=== PATIENT | male | born 1965 | race Caucasian/White ===

== ENCOUNTER 2017-06-11 05:49 | Observation (INO) | payer BC ==
[~2017-06-11] VITALS: Ht 180.3 cm; Wt 82.7 kg
[2017-06-11 05:54] VITALS: BP 139/69; PULSE 88; RESP 18; TEMP 98.5; O2SAT 96
--- NOTE | 2017-06-11 06:49 | PD ---
HPI Chief Complaint: GI Complaint Time Seen by Provider: 06:44 Travel History International Travel<30 days: No Contact w/Intl Traveler<30days: No Traveled to known affect area: No History of Present Illness HPI 51-year-old male presents to the emergency department by private transportation for complaint of increasingly worsening right lower quadrant abdominal pain associated with nausea subjective fever chills poor appetite and sensation of bloating or needing to have a bowel movement since approximately 8 PM last evening. Patient states pain developed as a bloating sensation in the periumbilical and midline area and overnight has progressively worsened and localized now to the right lower quadrant. No prior history of abdominal pain GI issues or abdominal surgery. Patient does not report any flank pain dysuria frequency urgency or hematuria. No report of any referred pain to the groin or testicle. Patient denies any chest pain pleuritic chest pain or shortness of breath. Patient denies any chronic medical conditions takes no medications on a regular basis and takes no prescription medications. Patient denies any medication allergies. Patient is unable to identify alleviating factors but is aware that walking or any deep breathing or impact causes increased right lower quadrant abdominal pain. Patient estimates his pain 8/10 in intensity is associated with nausea. PFSH Past Medical History Narrative Medical Negative past medical history; negative surgical history; no tobacco or alcohol use; nursing notes ?: Not Social History Alcohol Use: No Tobacco Use: No Substance Use: No Allergies-Medications (Allergen,Severity, Reaction): Coded Allergies: No Known Allergies (Unverified , 06/11/17) Reported Meds & Prescriptions Reported Meds & Active Scripts Active No Active Prescriptions or Reported Medications Review of Systems Except as stated in HPI: all other systems reviewed are Neg General / Constitutional: Positive: Fever (Subjective) HENT: No: Congestion Cardiovascular: No: Chest Pain or Discomfort, Diaphoresis, Dyspnea on exertion Respiratory: No: Shortness of Breath, Orthopnea, Hemoptysis, Pleuritic Pain Gastrointestinal: Positive: Nausea, Abdominal Pain (Right lower quadrant), No: Vomiting, Diarrhea Genitourinary: No: Dysuria, Hematuria, Flank Pain Musculoskeletal: No: Myalgias, Arthralgias, Cramping, Edema, Pain Skin: No Rash Neurologic: No: Weakness Psychiatric: No: Anxiety Hematologic/Lymphatic: No: Lymph Node Enlargement Physical Exam Narrative GENERAL: Well-developed well-nourished male in no acute distress or respiratory distress obvious discomfort with movement. SKIN: Warm and dry. HEAD: Normocephalic. EYES: No scleral icterus. No injection or drainage. NECK: Supple, trachea midline. No JVD or lymphadenopathy. CARDIOVASCULAR: Regular rate and rhythm without murmurs, gallops, or rubs. RESPIRATORY: Breath sounds equal bilaterally. No accessory muscle use. GASTROINTESTINAL: Abdomen soft, localized right lower quadrant tenderness with guarding and rebound, nondistended. MUSCULOSKELETAL: No cyanosis, or edema. BACK: Nontender without obvious deformity. No CVA tenderness. Data Data Last Documented VS Vital Signs Date Time Temp Pulse Resp B/P (MAP) Pulse Ox O2 Delivery O2 Flow Rate FiO2 06/11/17 07:10 98.4 82 16 142/83 (102) 96 Room Air Orders Orders Complete Blood Count With Diff (06/11/17 06:29) Comprehensive Metabolic Panel (06/11/17 06:29) Lipase (06/11/17 06:29) Urinalysis - C+S If Indicated (06/11/17 06:29) Ct Abd/Pel W Iv Contrast(Rout) (06/11/17 ) NPO (06/11/17 06:49) Ondansetron Inj (Zofran Inj) (06/11/17 07:00) Morphine Inj (Morphine Inj) (06/11/17 07:00) Sodium Chlor 0.9% 1000 Ml Inj (Ns 1000 M (06/11/17 07:00) Sodium Chlor 0.9% 1000 Ml Inj (Ns 1000 M (06/11/17 07:00) Iohexol 350 Inj (Omnipaque 350 Inj) (06/11/17 07:32) Piperacil-Tazo 4.5 Gm Premix (Zosyn 4.5 (06/11/17 08:00) Admit Order (Ed Use Only) (06/11/17 ) Vital Signs (Adult) Q4H (06/11/17 08:00) Diet Npo (06/11/17 Breakfast) Activity Bed Rest (06/11/17 08:00) Notify Dr: Other (06/11/17 08:00) Labs Laboratory Tests Test 06/11/17 06:30 White Blood Count 12.8 TH/MM3 Red Blood Count 5.55 MIL/MM3 Hemoglobin 15.8 GM/DL Hematocrit 44.8 % Mean Corpuscular Volume 80.7 FL Mean Corpuscular Hemoglobin 28.5 PG Mean Corpuscular Hemoglobin Concent 35.4 % Red Cell Distribution Width 13.1 % Platelet Count 209 TH/MM3 Mean Platelet Volume 8.3 FL Neutrophils (%) (Auto) 84.1 % Lymphocytes (%) (Auto) 10.5 % Monocytes (%) (Auto) 4.6 % Eosinophils (%) (Auto) 0.6 % Basophils (%) (Auto) 0.2 % Neutrophils # (Auto) 10.8 TH/MM3 Lymphocytes # (Auto) 1.3 TH/MM3 Monocytes # (Auto) 0.6 TH/MM3 Eosinophils # (Auto) 0.1 TH/MM3 Basophils # (Auto) 0.0 TH/MM3 CBC Comment DIFF FINAL Differential Comment Blood Urea Nitrogen 14 MG/DL Creatinine 1.00 MG/DL Random Glucose 97 MG/DL Total Protein 7.9 GM/DL Albumin 3.7 GM/DL Calcium Level 8.3 MG/DL Alkaline Phosphatase 51 U/L Aspartate Amino Transf (AST/SGOT) 43 U/L Alanine Aminotransferase (ALT/SGPT) 19 U/L Total Bilirubin 0.9 MG/DL Sodium Level 140 MEQ/L Potassium Level 3.5 MEQ/L Chloride Level 108 MEQ/L Carbon Dioxide Level 23.0 MEQ/L Anion Gap 9 MEQ/L Estimat Glomerular Filtration Rate 78 ML/MIN Lipase 307 U/L MDM Medical Decision Making Medical Screen Exam Complete: Yes Emergency Medical Condition: Yes Medical Record Reviewed: Yes Interpretation(s) abd/pel: CONCLUSION: 1. Findings consistent with acute appendicitis. No abscess or evidence for perforation at this time. 2. 3.4 cm hypodense lesion in segment 7 of the liver with indeterminate density. There are multiple additional subcentimeter hypodense lesions in the right lobe of the liver which are too small fully characterize. Statistically, this reflects a complex cyst or atypical hemangioma. This may be further evaluated with MRI liver mass protocol as clinically warranted. 3. Additional ancillary findings, as above. Lane Diaz MD on June 11, 2017 at 7:37 Board Certified Radiologist. This report was verified electronically. CBC & BMP Diagram 06/11/17 06:30 Total Protein 7.9, Albumin 3.7, Calcium Level 8.3 L, Alkaline Phosphatase 51, Aspartate Amino Transf (AST/SGOT) 43 H, Alanine Aminotransferase (ALT/SGPT) 19, Total Bilirubin 0.9 Vital Signs Date Time Temp Pulse Resp B/P (MAP) Pulse Ox O2 Delivery O2 Flow Rate FiO2 06/11/17 07:10 98.4 82 16 142/83 (102) 96 Room Air 06/11/17 05:54 98.5 88 18 139/69 (92) 96 Differential Diagnosis Abdominal pain, appendicitis, diverticulitis, renal colic, unlikely testicular torsion Narrative Course IV access obtained specimens collected and sent for resulting CT abdomen and pelvis ordered patient administered normal saline at 125 cc/h kept n.p.o. morphine 4 mg IV administered along with Zofran 4 mg IV Physician Communication Physician Communication call placed to Gen Surgery --discussed with Dr Oropeza @ 0800 Diagnosis Primary Impression: Acute appendicitis Qualified Codes: K35.3 - Acute appendicitis with localized peritonitis Admitting Information Admitting Physician Requests: Admit Scripts No Active Prescriptions or Reported Meds Vita Villagomez MD Jun 11, 2017 06:49
[2017-06-11 06:50] LABS: AUTOMATED NEUTROPHIL # 10.8 TH/MM3 (1.8-7.7); BASOPHIL % 0.2 % (0.0-2.0); EOSINOPHIL # 0.1 TH/MM3 (0-0.4); EOSINOPHIL % 0.6 % (0.0-4.0); HEMATOCRIT 44.8 % (39.0-51.0); HEMOGLOBIN 15.8 GM/DL (13.0-17.0); LYMPH % 10.5 % (9.0-44.0); LYMPHOCYTE # 1.3 TH/MM3 (1.0-4.8); MEAN CELL VOLUME 80.7 FL (80.0-100.0); MEAN CORPUSCULAR HEMOGLOBIN 28.5 PG (27.0-34.0); MEAN CORPUSCULAR HGB CONC 35.4 % (32.0-36.0); MEAN PLATELET VOLUME 8.3 FL (7.0-11.0); MONO % 4.6 % (0.0-8.0); MONOCYTE # 0.6 TH/MM3 (0-0.9); NEUT % 84.1 % (16.0-70.0); PLATELET COUNT 209 TH/MM3 (150-450); RED BLOOD COUNT 5.55 MIL/MM3 (4.50-5.90); RED CELL DISTRIBUTION WIDTH 13.1 % (11.6-17.2); WHITE BLOOD COUNT 12.8 TH/MM3 (4.0-11.0)
[2017-06-11] MEDS ORDERED: ONDANSETRON HCL 4 MG/2 ML VIAL IV PUSH ONE (07:00)
[2017-06-11] MEDS ORDERED: SODIUM CHLOR 0.9% 1000 ML INJ 1,000 ML IV ONE (07:00)
[2017-06-11] MEDS ORDERED: MORPHINE SULFATE 4 MG/ML INJ IV PUSH ONE (07:00)
[2017-06-11 07:08] LABS: CHLORIDE 108 MEQ/L (98-107); SODIUM (NA) 140 MEQ/L (136-145)
[2017-06-11 07:10] VITALS: BP 142/83; PULSE 82; RESP 16; TEMP 98.4; O2SAT 96
[2017-06-11 07:12] LABS: ALBUMIN 3.7 GM/DL (3.4-5.0); BLOOD UREA NITROGEN 14 MG/DL (7-18); CALCIUM 8.3 MG/DL (8.5-10.1); GLUCOSE,RANDOM 97 MG/DL (74-106)
[2017-06-11 07:15] LABS: ALT (GPT) 19 U/L (12-78); AST (GOT) 43 U/L (15-37); GLOMERULAR FILTRATION RATE 78 ML/MIN (>89)
[2017-06-11 07:17] LABS: TOTAL BILIRUBIN ADULT 0.9 MG/DL (0.2-1.0); TOTAL PROTEIN 7.9 GM/DL (6.4-8.2)
[2017-06-11 07:18] LABS: ALKALINE PHOSPHATASE 51 U/L (45-117)
[2017-06-11] MEDS ORDERED: IOHEXOL 350 MG/ML 10 ML VIAL (for RAD DIAG) IVCONTRAST ONE (07:32)
--- NOTE | 2017-06-11 07:50 | RADRPT ---
EXAM DATE/TIME: 06/11/2017 07:27 [facility] COMPARISON: No previous studies available for comparison. INDICATIONS : Right lower quadrant pain. IV CONTRAST: 95 cc Omnipaque 350 (iohexol) IV ORAL CONTRAST: No oral contrast ingested. RADIATION DOSE: 10.15 CTDIvol (mGy) MEDICAL HISTORY : None SURGICAL HISTORY : None. ENCOUNTER: Initial ACUITY: 1 day PAIN SCALE: 8/10 LOCATION: Right lower quadrant TECHNIQUE: Volumetric scanning of the abdomen and pelvis was performed. Using automated exposure control and ad justment of the mA and/or kV according to patient size, radiation dose was kept as low as reasonably achievable to obtain optimal diagnostic quality images. DICOM format image data is available electro nically for review and comparison. FINDINGS: LOWER LUNGS: Minimal groundglass opacities at the lung bases. LIVER: There is a 3.4 x 2.5 cm hypodense lesion in segment 7 which demonstrates indeterminate density. Multi ple additional subcentimeter hypodense lesions scattered primarily in the right lobe are too small to fully characterize. No calcified gallstones. SPLEEN: Normal size without lesion. PANCREAS: Within normal limits. KIDNEYS: Kidneys demonstrate symmetrical enhancement without evidence for hydronephrosis or radiopaque renal c alculi. There is a subcentimeter hypodense lesion in the superior pole the left kidney which is to sm all to fully characterize. ADRENAL GLANDS: Within normal limits. VASCULAR: There is no aortic aneurysm. BOWEL/MESENTERY: The appendix is slightly enlarged with mild periappendiceal inflammatory stranding. No focal drainabl e fluid collections or free air. Otherwise appears unremarkable. ABDOMINAL WALL: Within normal limits. RETROPERITONEUM: There is no lymphadenopathy. BLADDER: No wall thickening or mass. REPRODUCTIVE: Nonspecific enlargement of the prostate gland. INGUINAL: Small fat containing left inguinal hernia. MUSCULOSKELETAL: Probable healed left-sided rib fractures. Mild dextroscoliosis of the lumbar spine. No abnormal lytic or blastic bony lesions. CONCLUSION: 1. Findings consistent with acute appendicitis. No abscess or evidence for perforation at this time. 2. 3.4 cm hypodense lesion in segment 7 of the liver with indeterminate density. There are multiple a dditional subcentimeter hypodense lesions in the right lobe of the liver which are too small fully ch aracterize. Statistically, this reflects a complex cyst or atypical hemangioma. This may be further e valuated with MRI liver mass protocol as clinically warranted. 3. Additional ancillary findings, as above. Lane Diaz MD on June 11, 2017 at 7:37 Board Certified Radiologist. This report was verified electronically.
[2017-06-11] MEDS ORDERED: PIPERACIL-TAZO 4.5 GM PREMIX 100 ML IV ONE (08:00)
[2017-06-11] MEDS: SODIUM CHLOR 0.9% 1000 ML INJ 1,000 ML IV SCH ×4 (08:28→16:28)
[2017-06-11] MEDS ORDERED: SODIUM CHLORIDE 0.9% FLUSH 10 ML FLUSH IV FLUSH PRN (08:30)
--- NOTE | 2017-06-11 08:34 | HHI.HP ---
cc: Yuri Oropeza MD [facility] Service ADMISSION NOTE FOR SURGICAL ATTENDING, DR. YURI OROPEZA General Surgery Primary Care Physician No Primary Care Physician Admission Diagnosis acute appendicitis Chief Complaint: Abdominal pain History of Present Illness This is a 51 year old male with no past medical history who presents to the ED with complaints of RIGHT lower quadrant abdominal pain. Of note, the patient just traveled back from a hiking trip in [place]. On Saturday, the patient was traveling back to [place] and generalized felt tired but contributed that to his hiking trip. When he went to bed last night he felt slightly feverish. He did not take his temperature. The pain was severe and he decided to come to the ED. A CT abdomen/pelvis was obtained which in consistent with acute appendicitis. He does have an elevated WBC count of 12.0. All of his other labs are unremarkable. The patient was started on Zosyn in the ED. A General Surgery admission has been requested. Review of Systems Constitutional: COMPLAINS OF: Fatigue, Chills, Change in appetite Endocrine: DENIES: Polydipsia, Polyuria, Polyphagia Eyes: DENIES: Diplopia, Eye inflammation Ears, nose, mouth, throat: DENIES: Hearing loss, Vertigo Respiratory: DENIES: Apneas, Cough Cardiovascular: DENIES: Chest pain Gastrointestinal: COMPLAINS OF: Abdominal pain, Nausea, DENIES: Vomiting Genitourinary: DENIES: Urinary frequency, Urinary incontinence Musculoskeletal: DENIES: Joint pain Integumentary: DENIES: Abnormal pigmentation Hematologic/lymphatic: DENIES: Bruising Immunologic/allergic: DENIES: Eczema Neurologic: DENIES: Abnormal gait, Headache Psychiatric: DENIES: Confusion, Mood changes, Depression Past Family Social History Past Medical History None Past Surgical History Vasectomy Lasik eye surgery Reported Medications None Allergies: Coded Allergies: No Known Allergies (Unverified , 06/11/17) Active Ordered Medications Current Medications Medications (Trade) Dose Ordered Sig/Nancy Route Start Time Stop Time Status Last Admin Sodium Chloride 1,000 ml @ 125 mls/hr Q8H IV 06/11/17 07:00 Family History Noncontributory Social History Denies tobacco use Denies ETOH use Denies illicit drug use 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 Physical Exam Vital Signs Vital Signs Date Time Temp Pulse Resp B/P (MAP) Pulse Ox O2 Delivery O2 Flow Rate FiO2 06/11/17 07:10 98.4 82 16 142/83 (102) 96 Room Air 06/11/17 05:54 98.5 88 18 139/69 (92) 96 Physical Exam GENERAL: Very pleasant 51 year old male resting in bed in no acute distress. SKIN: Warm and dry. HEAD: Atraumatic. Normocephalic. EYES: Pupils equal and round. No scleral icterus. No injection or drainage. ENT: No nasal bleeding or discharge. Mucous membranes pink and moist. NECK: Trachea midline. CARDIOVASCULAR: Regular rate and rhythm. RESPIRATORY: No accessory muscle use. Clear to auscultation. Breath sounds equal bilaterally. GASTROINTESTINAL: Abdomen soft, mildly distended; tenderness in RLQ with palpation. No visible scars or hernias. MUSCULOSKELETAL: Extremities without clubbing, cyanosis, or edema. No obvious deformities. NEUROLOGICAL: Awake and alert. No obvious cranial nerve deficits. Motor grossly within normal limits. Five out of 5 muscle strength in the arms and legs. Normal speech. PSYCHIATRIC: Appropriate mood and affect; insight and judgment normal. Laboratory Laboratory Tests Test 06/11/17 06:30 White Blood Count 12.8 Red Blood Count 5.55 Hemoglobin 15.8 Hematocrit 44.8 Mean Corpuscular Volume 80.7 Mean Corpuscular Hemoglobin 28.5 Mean Corpuscular Hemoglobin Concent 35.4 Red Cell Distribution Width 13.1 Platelet Count 209 Mean Platelet Volume 8.3 Neutrophils (%) (Auto) 84.1 Lymphocytes (%) (Auto) 10.5 Monocytes (%) (Auto) 4.6 Eosinophils (%) (Auto) 0.6 Basophils (%) (Auto) 0.2 Neutrophils # (Auto) 10.8 Lymphocytes # (Auto) 1.3 Monocytes # (Auto) 0.6 Eosinophils # (Auto) 0.1 Basophils # (Auto) 0.0 CBC Comment DIFF FINAL Differential Comment Blood Urea Nitrogen 14 Creatinine 1.00 Random Glucose 97 Total Protein 7.9 Albumin 3.7 Calcium Level 8.3 Alkaline Phosphatase 51 Aspartate Amino Transf (AST/SGOT) 43 Alanine Aminotransferase (ALT/SGPT) 19 Total Bilirubin 0.9 Sodium Level 140 Potassium Level 3.5 Chloride Level 108 Carbon Dioxide Level 23.0 Anion Gap 9 Estimat Glomerular Filtration Rate 78 Lipase 307 Result Diagram: 06/11/17 0630 06/11/17 0630 Imaging Last 48 hours Impressions Abdomen/Pelvis CT 06/11/17 0000 Signed Impressions: Service Date/Time: Sunday, June 11, 2017 07:27 - CONCLUSION: 1. Findings consistent with acute appendicitis. No abscess or evidence for perforation at this time. 2. 3.4 cm hypodense lesion in segment 7 of the liver with indeterminate density. There are multiple additional subcentimeter hypodense lesions in the right lobe of the liver which are too small fully characterize. Statistically, this reflects a complex cyst or atypical hemangioma. This may be further evaluated with MRI liver mass protocol as clinically warranted. 3. Additional ancillary findings, as above. MD Herbert Unger VTE Risk Assessment Caprini VTE Risk Assessment: No/Low Risk (score <= 1) VTE Pharm Contraindication: going to OR today Caprini Risk Assessment Model Point Value = 1 Point Value = 2 Point Value = 3 Point Value = 5 Age 41-60 Minor surgery BMI > 25 kg/m2 Swollen legs Varicose veins or History of unexplained or recurrent spontaneous Oral contraceptives or hormone replacement Sepsis (< 1 month) Serious lung disease, including pneumonia (< 1 month) Abnormal pulmonary function Acute myocardial infarction Congestive heart failure (< 1 month) History of inflammatory bowel disease Medical patient at bed rest Age 61-74 Arthroscopic surgery Major open surgery (> 45 min) Laparoscopic surgery (> 45 min) Malignancy Confined to bed (> 72 hours) Immobilizing plaster cast Central venous access Age >= 75 History of VTE Family history of VTE Factor V Leiden Prothrombin [id number] Lupus anticoagulant Anticardiolipin antibodies Elevated serum homocysteine Heparin-induced thrombocytopenia Other congenital or acquired thrombophilia Stroke (< 1 month) Elective arthroplasty Hip, pelvis, or leg fracture Acute spinal cord injury (< 1 month) Prophylaxis Regimen Total Risk Factor Score Risk Level Prophylaxis Regimen 0-1 Low Early ambulation 2 Moderate Order ONE of the following: *Sequential Compression Device (SCD) *Heparin 5000 units SQ BID 3-4 Higher Order ONE of the following medications: *Heparin 5000 units SQ TID *Enoxaparin/Lovenox 40 mg SQ daily (WT < 150 kg, CrCl > 30 mL/min) *Enoxaparin/Lovenox 30 mg SQ daily (WT < 150 kg, CrCl > 10-29 mL/min) *Enoxaparin/Lovenox 30 mg SQ BID (WT < 150 kg, CrCl > 30 mL/min) AND/OR *Sequential Compression Device (SCD) 5 or more Highest Order ONE of the following medications: *Heparin 5000 units SQ TID (Preferred with Epidurals) *Enoxaparin/Lovenox 40 mg SQ daily (WT < 150 kg, CrCl > 30 mL/min) *Enoxaparin/Lovenox 30 mg SQ daily (WT < 150 kg, CrCl > 10-29 mL/min) *Enoxaparin/Lovenox 30 mg SQ BID (WT < 150 kg, CrCl > 30 mL/min) AND *Sequential Compression Device (SCD) Assessment and Plan Problem List: (1) Acute appendicitis ICD Codes: K35.80 - Unspecified acute appendicitis Status: Acute (2) RLQ abdominal pain ICD Codes: R10.31 - Right lower quadrant pain Status: Acute (3) Abnormal CT of the abdomen ICD Codes: R93.5 - Abnormal findings on diagnostic imaging of other abdominal regions, including retroperitoneum Status: Acute (4) Peritonitis (acute) generalized ICD Codes: K65.0 - Generalized (acute) peritonitis Status: Acute Assessment and Plan 51 year old male with acute appendicitis -Plan for laparoscopic appendectomy possible open procedure today -Obtain consents -NPO -IVF -Zosyn -Procedure explained in detail and all the patient's questions were answered ADMISSION NOTE FOR SURGICAL ATTENDING, DR. YURI OROPEZA Patient seen and examined Has classical history and exam for acute abdomen, acute appendicitis, peritonitis correlating to the radiologic imaging. Laparoscopic appendectomy Discussed with patient and I agree with above assessment and plan. The exam, history, and the medical decision-making described in the above note were completed with the assistance of the mid-level provider. I reviewed and agree with the findings presented. I attest that I had a [id number] encounter with the patient on the same day, and personally performed and documented my assessment and findings in the medical record. The following services were provided during this hospital visit: Chart data review, vital sign assessments/reviewing monitor data Review of consultations notes if present. Medication orders/review and/or management Ordering and/or reviewing lab tests Ordering and/or interpreting/reviewing x-rays and/or diagnostic studies Care of the patient and discussion of the patient with the care team Documentation time To help prompt me to consider important information that might be impacting today's encounter and assessment, information from prior notes written by myself or my colleagues may have been "brought forward/copy and pasted" into today's note. Discussed Condition With Dr. Oropeza Martha Mitchell Problem Qualifiers (1) Acute appendicitis: Qualified Codes: K35.3 - Acute appendicitis with localized peritonitis Chelsie Wiggins/First Betzy DE SANTIAGO Jun 11, 2017 08:34 Yuri Oropeza MD Jun 11, 2017 17:37
[2017-06-11 08:40] LABS: BILIRUBIN, URINE NEG (NEG); BLOOD, URINE NEG (NEG); GLUCOSE,URINE NEG (NEG); KETONE, URINE NEG (NEG); NITRITE,URINE NEG (NEG); URINE LEUKOCYTE ESTERASE NEG (NEG)
[2017-06-11 08:54] LABS: URINE COLOR STRAW (YELLW/STRAW)
[2017-06-11 08:55] LABS: RBC, URINE 0-3 /hpf (0-3); SQUAMOUS EPITHELIAL CELL URINE 0-5 /hpf (0-5)
[2017-06-11 08:59] VITALS: BP 140/81
[2017-06-11] MEDS ORDERED: SODIUM CHLORIDE 0.9% FLUSH 10 ML FLUSH IV FLUSH SCH (09:00)
[2017-06-11] MEDS ORDERED: MORPHINE SULFATE 4 MG/ML INJ IV PUSH PRN (09:00)
[2017-06-11] MEDS ORDERED: PANTOPRAZOLE SODIUM 40 MG VIAL IV PUSH SCH (09:00)
[2017-06-11] MEDS ORDERED: SODIUM CHLORID 0.9% 500 ML IV PRN (09:30)
[2017-06-11] MEDS ORDERED: CHLORHEXIDINE GLUCONATE 2 % 1 PACK (2 CLOTHS) TOPICAL PRN (09:30)
[2017-06-11] MEDS ORDERED: POVIDONE IODINE 5% (ANTISEPSIS KIT) 4 APPLICATIONS EACH NARE PRN (09:30)
[2017-06-11] MEDS ORDERED: LACTATED RINGER'S 1000 ML IV PRN (09:30)
[2017-06-11] MEDS ORDERED: METOPROLOL TARTRATE 25 MG TAB PO PRN (09:30)
[2017-06-11] MEDS ORDERED: BUPIVACAINE/EPINEPHRINE 0.25% 50 ML VIAL ONE (09:38)
[2017-06-11] MEDS ORDERED: SCOPOLAMINE 1.5 MG PATCH ONE (09:40)
[2017-06-11] MEDS ORDERED: MIDAZOLAM HCL 2 MG/2 ML VIAL ONE (09:40)
[2017-06-11] MEDS ORDERED: FAMOTIDINE 20 MG/2 ML VIAL ONE (09:40)
--- NOTE | 2017-06-11 10:43 | HHI.PR ---
cc: Yuri Oropeza MD Immediate Post Op Note Procedure Date: Jun 11, 2017 Pre Op Diagnosis: (1) Acute appendicitis (2) Peritonitis (acute) generalized Post Op Diagnosis: (1) Acute appendicitis (2) Peritonitis (acute) generalized Surgeon: Yuri Oropeza Replenishment Buyer(s): C OR record Procedure: Laparoscopic appendectomy Findings: Inflamed appendix Complications: None Specimen(s) removed: Appendix Anesthesia: General Drains: None IVF Patient to: PACU Patient Condition: Good Implant/Devices: SEE IMPLANT LOG (if applicable) Date/Time of Procedure: SEE SURGICAL CARE RECORD Yuri Oropeza MD Jun 11, 2017 10:43
[2017-06-11] MEDS ORDERED: NORC5TAB PO (10:49)
[2017-06-11 10:55] VITALS: PULSE 65
[2017-06-11] MEDS: ACETAMINOPHEN 1000 MG/100 ML 100 ML IV SCH ×2 (11:00→17:00)
[2017-06-11] MEDS ORDERED: ACETAMINOPHEN/HYDROcodone 325 MG/5 MG TAB PO PRN (11:00)
--- NOTE | 2017-06-11 11:37 | MP ---
cc: Yuri Oropeza MD DATE OF OPERATION: 06/11/2017 PREOPERATIVE DIAGNOSIS: peritonitis, right lower quadrant. appendicitis POSTOPERATIVE DIAGNOSIS: peritonitis, right lower quadrant. appendicitis PROCEDURE: Laparoscopic appendectomy. ANESTHESIA: General. SURGEON: Dr. Oropeza. INDICATION: This is a pleasant 51-year-old gentleman who had 1-day history of periumbilical pain radiating down to the right lower quadrant. He had classic signs and symptomatology of an acute abdomen with peritonitis concerning for appendicitis. The CT scans confirmed this. Plans were made for above. PROCEDURE: Patient taken to operating room, placed in supine position. After anesthesia, his abdomen was prepped with Betadine. He had already gotten some antibiotics. A timeout was done. We make an incision just above the umbilicus after anesthetized with Marcaine solution. We dissected down to the fascia. The Veress needle was then inserted to the fascia using the saline load test. We insufflated the abdomen 15 mmHg. Two of the working ports were placed, 5 mm above the pubic tubercle, 5 mm in between the 2 previously placed ports. The appendix could be seen, is obviously inflamed. I do not think it is perforated yet. There is some cloudy fluid in the pelvis. This is evacuated. I take the mesentery of the appendix down with the Harmonic scalpel down to the base of the appendix, which is doubly ligated with PDS Endoloop. The appendix then amputated, placed in the Endo Catch and pulled out through the umbilical incision and passed off the field. We then checked our dissection site. There was excellent hemostasis. We irrigated with 500 mL of saline, removing the cloudy fluid in the pelvis. No other gross abnormality seen. The liver smooth, peritoneal surfaces smooth. The gallbladder looks normal. There was some mention of a small hemangioma in the right lobe of the liver; this cannot be visualized. The irrigating solution and CO2 is removed. The trocars are removed. The fascial layer at the umbilicus closed with a 0 Vicryl, and the skin at all 3 sites was closed with a 4-0 Vicryl. Steri-Strips applied. Sterile bandage applied. Patient awakened in the recovery room. No immediate postop complications. Yuri Oropeza MD [id number] , 11:17 AM , 11:36 AM [email or web address]
[2017-06-11 12:00] VITALS: BP 126/70; PULSE 63; RESP 18; TEMP 96.7; O2SAT 96
[2017-06-11 16:00] VITALS: BP 110/71; PULSE 58; RESP 16; TEMP 96.7; O2SAT 96
[2017-06-11] MEDS ORDERED: PIPERACIL-TAZO 3.375 GM PREMIX 50 ML IV SCH (16:00)
--- NOTE | 2017-06-11 18:46 | EKG ---
Date Performed: 06/11/2017 Time Performed: 08:39:53 PTAGE: 51 years EKG: Sinus rhythm POSSIBLE LEFT ATRIAL ENLARGEMENT POSSIBLE RIGHT VENTRICULAR CONDUCTION DELAY BORDERLINE ECG NO PREVIOUS TRACING DOCTOR: Leif Rm Interpretating Date/Time 06/11/2017 18:42:50
== END 2017-06-11 18:45 | disposition home or self-care (01) ==
LOC: PHED 05:49 → PHEDA 08:01 → PH3A 12:13
PROVIDERS: ADMIT Surgery; ATTEND Surgery
DX: K35.3 Acute appendicitis with localized peritonitis (principal); D18.00 Hemangioma unspecified site; R94.31 Abnormal electrocardiogram [ECG] [EKG]
CPT/HCPCS: 00840; 44970; 74177; 80053; 81001; 83690; 85025; 88304; 93005; 96361; 96365; 96375; 99285; G0378; J2250; J2543; J3010; J7030; J7120; Q9967